=== PATIENT | female | born 1995 | race American Indian/Alaskan Native ===

== ENCOUNTER 2017-09-18 14:08 | Emergency (ER) | payer OTHER ==
[2017-09-18 14:22] VITALS: RESP 18
[2017-09-18] MEDS ORDERED: TDAP Vaccine 0.5 mL Syr IM ONE (14:42)
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
[2017-09-18] MEDS ORDERED: Lidocaine 1% w Epi 1:100,000 Inj IJ STA (15:09)
[2017-09-18 16:21] VITALS: BP 124/79; PULSE 74; TEMP 98.3; O2SAT 99
== END 2017-09-18 16:20 | disposition home or self-care (01) ==
LOC: ED 14:08
DX: S01.81XA Laceration without foreign body of other part of head, initial encounter (principal); Y04.0XXA Assault by unarmed brawl or fight, initial encounter; Y92.9 Unspecified place or not applicable; Z23 Encounter for immunization

== ENCOUNTER 2017-10-25 16:42 | Emergency (ER) | payer OTHER ==
[2017-10-25 16:52] VITALS: BP 122/74; PULSE 97; RESP 18; TEMP 99.1; O2SAT 99
--- NOTE | 2017-10-25 17:10 | ED PDOC ---
Arrival/HPI - General Chief Complaint: Headache Time Seen by Provider: 10/25/17 16:45 Historian: Patient - History of Present Illness Narrative History of Present Illness (Text): 10/25/17 17:10 Patient is a 22 yo F who is 7 months , otherwise in good health reports onset of headache which started today. States that she was unsure what medication was safe to take for her headache since she is . Reports not taking any medication for her symptom. She is receiving care and has been otherwise in good health regarding this . Otherwise: (-) thunderclap headache, (-) worse headache of life, (-) nausea, (-) vomiting, (-) photophobia, (-) phonophobia, (-) URI symptoms, (-) fever, (-) abdominal pain, ( -) vaginal bleeding. (-) trauma, (-) subjective neurologic symptoms. Patient adds that the baby has been moving daily. Past Medical History - Infectious Disease Hx of Infectious Diseases: None - Pulmonary Hx Asthma: Yes - Hematological/Oncological Other/Comment: [place] - Psychiatric Hx Substance Use: No Family/Social History Family/Social History: No Known Family HX Smoking Status: Former Smoker Hx Alcohol Use: No Hx Substance Use: No Allergies/Home Meds Allergies/Adverse Reactions: Allergies No Known Allergies Allergy (Verified 10/25/17 16:49) Home Medications: Home Meds Medication Instructions Recorded Confirmed Vit Calc,Iron,Folic 1 tab PO DAILY 09/18/17 10/25/17 [ Vitamins] Review of Systems - Review of Systems Constitutional: absent: Fatigue, Fevers ENT: absent: Sore Throat, Rhinorrhea, Sinus Congestion Respiratory: absent: SOB, Cough Cardiovascular: absent: Chest Pain, Palpitations Gastrointestinal: absent: Abdominal Pain, Nausea, Vomiting Genitourinary Female: absent: Dysuria, Frequency, Hematuria Musculoskeletal: absent: Arthralgias, Back Pain, Neck Pain Skin: absent: Rash, Pruritis, Skin Lesions Neurological: Headache. absent: Dizziness, Focal Weakness Physical Exam Vital Signs Temp Pulse Resp BP Pulse Ox 10/25/17 16:45 99.1 F 97 H 18 122/74 99 Temperature: Afebrile Blood Pressure: Normal Pulse: Regular Respiratory Rate: Normal Appearance: Positive for: Well-Appearing, Non-Toxic, Comfortable Pain Distress: None Mental Status: Positive for: Alert and Oriented X 3 - Systems Exam Head: Present: Atraumatic, Normocephalic Pupils: Present: PERRL Extroacular Muscles: Present: EOMI Conjunctiva: Present: Normal Mouth: Present: Moist Mucous Membranes Neck: Present: Normal Range of Motion. No: Meningeal Signs, Lymphadenopathy Respiratory/Chest: Present: Clear to Auscultation, Good Air Exchange. No: Respiratory Distress, Accessory Muscle Use Cardiovascular: Present: Regular Rate and Rhythm, Normal S1, S2. No: Murmurs Abdomen: Present: Other (gravid abdomen). No: Tenderness, Distention, Peritoneal Signs Back: Present: Normal Inspection. No: CVA Tenderness, Midline Tenderness Upper Extremity: Present: Normal Inspection. No: Cyanosis, Edema Lower Extremity: Present: Normal Inspection. No: Edema Neurological: Present: GCS=15, CN II-XII Intact, Speech Normal, Motor Func Grossly Intact, Normal Sensory Function, Gait Normal Skin: Present: Warm, Dry, Normal Color. No: Rashes Psychiatric: Present: Alert, Oriented x 3, Normal Insight, Normal Concentration Medical Decision Making ED Course and Treatment: 10/25/17 17:09 Plan : - tylenol po Advised to follow up with OB physician in 1-2 days without fail. Advised to take medication as prescribed. Return to the emergency room at any time for any new or worsening symptoms. Patient states she fully agrees with and understands discharge instructions. States that she agrees with the plan and disposition. Verbalized and repeated discharge instructions and plan. I have given the patient opportunity to ask any additional questions. - Medication Orders Current Medication Orders: Discontinued Medications Acetaminophen (Tylenol 325mg Tab) 975 mg PO STAT STA Stop: 10/25/17 16:57 - PA / FORMING MACHINE ADJUSTER / Resident Statement /DO has reviewed & agrees with the documentation as recorded. Disposition/Present on Arrival - Present on Arrival Any Indicators Present on Arrival: No History of DVT/PE: No History of Uncontrolled Diabetes: No Urinary Catheter: No History of Decub. Ulcer: No History Surgical Site Infection Following: None - Disposition Have Diagnosis and Disposition been Completed?: Yes Diagnosis: Headache Disposition: HOME/ ROUTINE Disposition Time: 17:00 Patient Plan: Discharge Patient Problems: Current Active Problems Problem Status Onset Headache Acute Condition: STABLE Discharge Instructions (ExitCare): Headache, Adult Additional Instructions: Thank you for letting us take care of you today. You were treated for headache. The emergency medical care you received today was directed at your acute symptoms. If you were prescribed any medication, please fill it and take as directed. Do not take aspirin or any NSAIDs for your headache or any type of pain. It may take several days for your symptoms to resolve. Return to the Emergency Department if your symptoms worsen, do not improve, or if you have any other problems. Please contact your OB doctor in 2 days for re-evaluation and follow up. Bring any paperwork you were given at discharge with you along with any medications you are taking to your follow up visit. Our treatment cannot replace ongoing medical care by a primary care provider (PCP) outside of the emergency department. Thank you for allowing the [facility] team to be part of your care today. Prescriptions: Acetaminophen [Tylenol 325mg tab] 975 mg PO Q6H PRN #30 tab PRN Reason: Headache Forms: [employer] (Italian)
== END 2017-10-25 17:25 | disposition home or self-care (01) ==
LOC: ED 16:42
DX: R51 Headache (principal); O26.93 Pregnancy related conditions, unspecified, third trimester; Z3A.28 28 weeks gestation of pregnancy

== ENCOUNTER 2017-11-28 18:47 | Emergency (ER) | payer OTHER ==
--- NOTE | 2017-11-28 19:33 | ED PDOC ---
Arrival/HPI - General Time Seen by Provider: 11/28/17 19:09 Historian: Patient - History of Present Illness Narrative History of Present Illness (Text): 11/28/17 19:29 22 year old female, gestation of 32 weeks, with past medical history of asthma, presents to the Emergency department complaining of intermittent shortness of breath for past month. Patient reports worsening symptoms when lying flat at night prompting her to present to the Emergency department for medical evaluation. Patient reports improvement to symptoms with nebulizer treatments but reports symptoms are different from previous episodes of asthma. Patient denies any other somatic complaints. Patient denies fevers, chills, headache, dizziness, chest pain, dyspnea on exertion, cough, abdominal pain, nausea, vomiting, diarrhea, back pain, neck pain, vaginal bleeding or any other complaints. Time/Duration: 1 week Symptom Onset: Gradual Symptom Course: Unchanged, Intermittent Activities at Onset: Light Context: Home Past Medical History - Provider Review Nursing Documentation Reviewed: Yes - Infectious Disease Hx of Infectious Diseases: None - Pulmonary Hx Asthma: Yes - Hematological/Oncological Other/Comment: [place] - Psychiatric Hx Substance Use: No Family/Social History - Physician Review Nursing Documentation Reviewed: Yes Family/Social History: No Known Family HX Smoking Status: Former Smoker Hx Alcohol Use: No Hx Substance Use: No Allergies/Home Meds Allergies/Adverse Reactions: Allergies No Known Allergies Allergy (Verified 10/25/17 16:49) Home Medications: Home Meds Medication Instructions Recorded Confirmed Vit Calc,Iron,Folic 1 tab PO DAILY 09/18/17 11/28/17 [ Vitamins] Review of Systems - Physician Review All systems were reviewed & negative as marked: Yes - Review of Systems Constitutional: absent: Fevers Respiratory: SOB. absent: Cough Cardiovascular: absent: Chest Pain Gastrointestinal: absent: Abdominal Pain, Diarrhea, Nausea, Vomiting Musculoskeletal: absent: Back Pain, Neck Pain Neurological: absent: Headache, Dizziness Physical Exam Appearance: Positive for: Well-Appearing, Non-Toxic, Comfortable Pain Distress: None Mental Status: Positive for: Alert and Oriented X 3 - Systems Exam Head: Present: Atraumatic, Normocephalic Pupils: Present: PERRL Extroacular Muscles: Present: EOMI Conjunctiva: Present: Normal Mouth: Present: Moist Mucous Membranes Neck: Present: Normal Range of Motion Respiratory/Chest: Present: Clear to Auscultation, Good Air Exchange. No: Respiratory Distress, Accessory Muscle Use Cardiovascular: Present: Regular Rate and Rhythm, Normal S1, S2. No: Murmurs Abdomen: Present: Other (gravid abdomen). No: Tenderness, Distention, Peritoneal Signs Back: Present: Normal Inspection Upper Extremity: Present: Normal Inspection. No: Cyanosis, Edema Lower Extremity: Present: Normal Inspection. No: Edema Neurological: Present: GCS=15, CN II-XII Intact, Speech Normal Skin: Present: Warm, Dry, Normal Color. No: Rashes Psychiatric: Present: Alert, Oriented x 3, Normal Insight, Normal Concentration Medical Decision Making ED Course and Treatment: 11/28/17 19:34 Impression: 22 year old female presents to the Emergency department complaining of sob. Plan: -- Reassess and disposition Prior Visits: Notes and results from previous visits were reviewed. Progress Notes: 11/28/17 20:28 hgb 9.0. No CASTRO. No orthopnea or PND or leg swelling. no dark or bloody stool, ambulating well. IN NAD w/ clear lungs. Non tachy, no leg swelling. Likely enlarged fundus pushing on diaphragm w/ intermittent SOB. Will given albuterol neb for home and have pt follow up. Denies any dark or bloody stool. - Scribe Statement The provider has reviewed the documentation as recorded by the Scribe Harlan Orozco. All medical record entries made by the Scribe were at my direction and personally dictated by me. I have reviewed the chart and agree that the record accurately reflects my personal performance of the history, physical exam, medical decision making, and the department course for this patient. I have also personally directed, reviewed, and agree with the discharge instructions and disposition. Disposition/Present on Arrival - Present on Arrival Any Indicators Present on Arrival: No History of DVT/PE: No History of Uncontrolled Diabetes: No Urinary Catheter: No History Surgical Site Infection Following: None - Disposition Have Diagnosis and Disposition been Completed?: Yes Diagnosis: Asthma, mild, Shortness of breath due to in third trimester Disposition: HOME/ ROUTINE Disposition Time: 20:30 Condition: GOOD Discharge Instructions (ExitCare): Asthma in Adults, Asthma and Additional Instructions: VIRIDIANA DOLL, thank you for letting us take care of you today. Your provider was Jeremias Patino and you were treated for ASTHMA. The emergency medical care you received today was directed at your acute symptoms. If you were prescribed any medication, please fill it and take as directed. It may take several days for your symptoms to resolve. Return to the Emergency Department if your symptoms wo rsen, do not improve, or if you have any other problems. Please contact your doctor or call one of the physicians/clinics you have been referred to that are listed on the Patient Visit Information form that is included in your discharge packet. Bring any paperwork you were given at discharge with you along with any medications you are taking to your follow up visit. Our treatment cannot replace ongoing medical care by a primary care provider outside of the emergency department. Thank you for allowing the [facility] team to be part of your care today. If you had an X-Ray or CT scan: A Radiologist will review the ED reading if any change in treatment is needed we will contact you. If you had a blood, urine, or wound culture: It will take several days for the results, if any change in treatment is needed we will contact you. If you had an STI test: It will take 48 hours for the results. Please call after 1 week if you have not heard back. Prescriptions: RX: Albuterol HFA [Ventolin HFA 90 mcg/actuation (8 g)] 1 puff IH Q6H PRN #1 inhaler PRN Reason: Shortness Of Breath Referrals: Anaya Park MD [Medical Doctor] - Follow up with primary Vijaya Arreola MD [Staff Provider] - [facility] - Follow up with primary Forms: [employer] (Georgian)
[2017-11-28 19:36] VITALS: BMI 30.2
[2017-11-28 20:16] LABS: ALB/GLOB RATIO 1.1 (1.1-1.8); ALBUMIN 3.7 g/dL (3.0-4.8); ALT/SGPT 19 U/L (7-56); AST/SGOT 19 U/L (14-36); BLOOD UREA NITROGEN 4 mg/dL (7-21); CALCIUM 9.6 mg/dL (8.4-10.5); GFR NON-AFRICAN AMERICAN > 60
[2017-11-28 20:23] LABS: BASO # 0.02 K/mm3 (0.0-2.0); BASO % 0.3 % (0.0-3.0); EOS # 0.1 (0.0-0.7); EOS % 1.4 % (1.5-5.0); GRAN # 5.48 (1.4-6.5); GRAN % 68.8 % (50.0-68.0); HEMOGLOBIN 9.3 g/dL (12.0-16.0); LYMPH # 1.7 (1.2-3.4); LYMPH % 21.1 % (22.0-35.0); MEAN CELL VOLUME 98.6 fl (80.0-105.0); MEAN CORPUSCULAR HEMOGLOBIN 32.1 pg (25.0-35.0); MEAN CORPUSCULAR HGB CONC 32.5 g/dl (31.0-37.0); MEAN PLATELET VOLUME 10.1 fl (7.0-11.0); MONO # 0.7 (0.1-0.6); MONO % 8.4 % (1.0-6.0); RBC 2.9 10^6/uL (3.5-6.1); RED CELL DISTRIBUTION WIDTH 13.4 % (11.5-14.5)
[2017-11-28 20:42] VITALS: RESP 18
[2017-11-28 20:43] VITALS: O2SAT 99
[2017-11-28 20:50] VITALS: BP 110/62; PULSE 86; TEMP 97.7
== END 2017-11-28 20:50 | disposition home or self-care (01) ==
LOC: ED 18:47
DX: O99.513 Diseases of the respiratory system complicating pregnancy, third trimester (principal); J45.909 Unspecified asthma, uncomplicated; Z3A.32 32 weeks gestation of pregnancy